=== PATIENT | male | born 1980 | race Caucasian/White ===

== ENCOUNTER 2021-12-09 10:42 | Outpatient (CLI) | payer OTHER, BC, SELFPAY ==
--- NOTE | ~2021-12-09 | XR_ITS ---
XR knee RT 3V DATE: 12/09/2021 11:10 INDICATION: Tibial plateau fracture TECHNIQUE: 3 views COMPARISON: None FINDINGS: No recent fracture or dislocation, joint effusion, radiopaque intra-articular loose body or chondrocalcinosis is evident. Joint spaces are well preserved. IMPRESSION: No significant abnormality Reviewed, dictated and finalized at location A. IMPRESSION: No significant abnormality
== END 2021-12-09 10:43 | disposition home or self-care (01) ==
LOC: ANHIMG 10:51
PROVIDERS: Visit Provider Orthopaedic Surgery
DX: M25.561 Pain in right knee (principal)
CPT/HCPCS: 73562